=== PATIENT | female | born 1960 | race Caucasian/White ===

== ENCOUNTER 2016-03-28 13:43 | Outpatient (CLI) | payer OTHER ==
--- NOTE | 2016-03-28 14:14 | DIAGNOSTIC IMAGING REPORT ---
PROCEDURE: DEXA BONE DENSITY STUDY CLINICAL INDICATION: ANNUAL PHY EXAM COMPARISON: None. FINDINGS: LUMBAR SPINE: Bone mineral density 1.026 g/cm2, T score -0.2 normal LEFT HIP: Bone mineral density 1.040 g/cm2, T score 0.8 normal LEFT FEMORAL NECK: Bone mineral density 0.795 g/cm2, T score -0.5 normal FRACTURE RISK CALCULATION ( when applicable): 10-year fracture risk of a major osteoporotic fracture and of a hip fracture not reported because all T-scores at or above -1.0 (T score greater or equal to -1.0 to: NORMAL) (T score from -1.1 to -2.4: OSTEOPENIA) (T score ess than or equal to -2.5: OSTEOPOROSIS) IMPRESSION: 1. Normal spine hip and femoral neck
== END 2016-03-28 23:00 ==
LOC: XR SRH 13:43
DX: Z13.820 Encounter for screening for osteoporosis (principal)